=== PATIENT | female | born 1975 | race Caucasian/White ===

== ENCOUNTER 2017-12-04 10:18 | Emergency (ER) | payer OTHER, SELFPAY ==
[2017-12-04 10:20] VITALS: BP 132/95; PULSE 75; RESP 23; TEMP 37; O2SAT 97
--- NOTE | 2017-12-04 10:21 | ED_ITS ---
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 Patient fell back hitting the back of her head on the ground. There was reported loss of consciousness. No vomiting. EMS was called. Patient is not on anticoagulation. EMS states that the while transport here to the emergency department she received 8 mg of Zofran for nausea. Patient does describe left hip pain but otherwise no other symptoms. Related Data Previous Rx's Medication Instructions Recorded alprazolam 0.25 mg tablet 0.25 mg PO QHS #30 tab 09/07/17 levothyroxine 150 mcg tablet 150 mcg PO Q DAY #90 tab 09/26/17 Allergies Allergy/AdvReac Type Severity Reaction Status Date / Time No Known Drug Allergies Allergy Verified 12/04/17 10:24 Review of Systems Constitutional Denies fever(s) and Reports headache(s) Eyes Denies blurry vision and Denies diplopia ENT Ears, Nose, Mouth, and Throat: Denies vertigo, Denies dizziness, Denies facial pain, Reports headache(s), Denies neck pain and Denies sore throat Cardiovascular Denies chest pain, Denies syncope and Denies dyspnea Respiratory Denies dyspnea Gastrointestinal Gastrointestinal: Denies abdominal pain, Denies nausea and Denies vomiting Musculoskeletal Denies neck pain, Denies numbness and Denies tingling Comments: Left hip pain Integumentary/Breasts Denies lesions and Denies rash Neurologic Denies vertigo, Denies dizziness, Denies syncope, Reports headache(s), Denies numbness and Denies tingling Hematologic/Lymphatic Denies easy bleeding and Denies easy bruising Exam Initial Vital Signs Initial Vital Signs: Vital Signs Temperature 98.6 F 12/04/17 10:20 Pulse Rate 75 12/04/17 10:20 Respiratory Rate 23 12/04/17 10:20 Blood Pressure 132/95 H 12/04/17 10:20 Pulse Oximetry 97 12/04/17 10:20 Const General: cooperative, healthy appearing, well developed, well groomed and No acute distress Orientation: alert, awake and oriented x3 HENMT Head: normal to inspection, normocephalic and atraumatic Face and sinus: normal facial exam Mouth: oral mucosae normal Eyes Pupils: PERRL EOM: EOM intact bilaterally Neck Other: In cervical collar Resp Effort & Inspection: normal respiratory effort Auscultation: clear to auscultation bilaterally Cardio Rate: regular rate Rhythm: regular rhythm GI Inspection: non-distended Palpation: soft and No firm Skin Lesions: no lesions Rashes: no rashes Neuro General: alert, awake and oriented x3 Cognition: normal cognition Speech: speech normal Motor: muscle tone normal throughout Sensory Exam: no sensory deficits noted Extrem General: normal to inspection and capillary refill normal Right upper extremity: normal to inspection and full ROM Left upper extremity: normal to inspection and full ROM Right lower extremity: normal to inspection, full ROM and hip/thigh Details: normal to inspection and normal ROM; no tenderness and no swelling Left lower extremity: normal to inspection and full ROM Psych Appearance: grossly normal and well kempt [facility] Medical History Healthy adult (Acute) Surgical History History of third molar tooth extraction Status post delivery (04/01/04) Status post delivery (02/21/06) Family History Father Age: 71 Hypertension Mother Age: 73 Brain cancer Social History Smoking Status: Never smoker Course Orders Ordered: ED Orders 12/04/17 10:35 CT cervical spine wo con Stat CT head/brain wo con Stat Vital Signs - 8 hr 12/04/17 10:20 12/04/17 11:00 Temperature 98.6 F Pulse Rate 75 71 Respiratory Rate 23 21 Blood Pressure 132/95 H Blood Pressure [Right Arm] 117/73 Pulse Oximetry 97 97 MDM - Fall Imaging Data CT scan - head: Radiologist's impression: PROCEDURE: CT HEAD/BRAIN WO CON INDICATIONS: Fall with LOC TECHNIQUE: Noncontrast 4.5 mm thick angled axial sections acquired from the foramen magnum to the vertex, with coronal and sagittal reformats. For radiation dose reduction, the following was used: automated exposure control, adjustment of mA and/or kV according to patient size. COMPARISON: [facility], CT, HEAD WITHOUT CONTRAST, 01/29/2008, 11:41. FINDINGS: Image quality: Excellent. CSF spaces: Basal cisterns are patent. No extra-axial fluid collections. Ventricles are normal in size and shape. There may be an arachnoid cyst within the posterior fossa, unchanged. Brain: No midline shift. No intracranial masses or hemorrhage. Nair-white matter interface is normal. Skull and face: Calvarium and visualized facial bones are intact, without suspicious lesions. Sinuses: Visualized sinuses and mastoids are clear. IMPRESSION: Negative head CT. No acute intracranial hemorrhage. Dictated by: Alejandro Padilla M.D. on 12/04/2017 at 9:56 Approved by: Alejandro Padilla M.D. on 12/04/2017 at 9:57 CT cervical spine: Radiologist's impression: PROCEDURE: CT CERVICAL SPINE WO CON INDICATIONS: Fall with LOC TECHNIQUE: Noncontrast 3 mm thick sections acquired from the skull base to the T4 level. Sagittal and coronal reformats were then constructed. For radiation dose reduction, the following was used: automated exposure control, adjustment of mA and/or kV according to patient size. COMPARISON: None. FINDINGS: Image quality: Excellent. Bones: No fractures or dislocations. 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 Visualized superior ribs are intact. Mild multilevel degenerative disc changes and facet arthropathy are noted. Soft tissues: Prevertebral soft tissues are normal in thickness. No paravertebral hematomas. No apical pneumothoraces. IMPRESSION: No fracture. No acute osseous lesion. If symptoms and/or clinical suspicion for pathology persists, evaluation with MRI may be helpful for further assessment. Dictated by: Brianne Russell MD, PhD on 12/04/2017 at 10:53 Approved by: Brianne Russell MD, PhD on 12/04/2017 at 11:05 [facility] Narrative Medical decision making narrative: Patient is alert and oriented x3. Has a small contusion on the back of her head but no skin abrasions. No indication for suturing. Head CT and cervical spine CT were negative. Cervical collar was removed with full range of motion of her neck without any neurologic symptoms. No other further workup needed here in the emergency department. She has full range of motion of her left hip so will hold on x-rays for now. She reports no other pain. We did discuss the head injury. We did discuss the diagnosis of a concussion. We did discuss the potential complications that she can have such as headaches, vision changes, nausea, mood swings. We did discuss return precautions. Her was at bedside for these discussions. They both expressed understanding and agreement with plan. Discharge Plan Departure Patient Disposition: Home Clinical Impression: Closed head injury, Concussion Instructions: DI for Concussion, Closed Head Injury Activity Restrictions/Additional Instructions: You do have a concussion. You could potentially expect symptoms to include headache, vision changes, nausea, mood swings, lightheadedness. Expect to be more sore tomorrow. If there are specific pains that you have tomorrow that we did not evaluate today such as worsening pain in her left hip then return to the emergency department. You can sleep like normal and eat like normal. Call your primary care doctor for follow-up. No driving for the next 24 hr. Prescriptions: No Action alprazolam 0.25 mg tablet 0.25 mg PO QHS Qty: 30 RF: 2 levothyroxine 150 mcg tablet 150 mcg PO Q DAY Qty: 90 RF: 1 Referrals: Shefali Saravia MD [Physician] - Stand Alone Forms: Work/School Restrictions
--- NOTE | 2017-12-04 10:27 | PC.NURSE ---
Neuro intact. + sensation / movement in all four limbs. + pain only w/ palpation left hip but pt states it is improved. No pain w/ passive / active range of motion. at bedside.
--- NOTE | 2017-12-04 10:35 | DI.CT.S_ITS ---
PROCEDURE: CT HEAD/BRAIN WO CON INDICATIONS: Fall with LOC TECHNIQUE: Noncontrast 4.5 mm thick angled axial sections acquired from the foramen magnum to the vertex, with coronal and sagittal reformats. For radiation dose reduction, the following was used: automated exposure control, adjustment of mA and/or kV according to patient size. COMPARISON: [facility], CT, HEAD WITHOUT CONTRAST, 01/29/2008, 11:41. FINDINGS: Image quality: Excellent. CSF spaces: Basal cisterns are patent. No extra-axial fluid collections. Ventricles are normal in size and shape. There may be an arachnoid cyst within the posterior fossa, unchanged. Brain: No midline shift. No intracranial masses or hemorrhage. Nair-white matter interface is normal. Skull and face: Calvarium and visualized facial bones are intact, without suspicious lesions. Sinuses: Visualized sinuses and mastoids are clear. IMPRESSION: Negative head CT. No acute intracranial hemorrhage. Dictated by: Alejandro Padilla M.D. on 12/04/2017 at 9:56 Approved by: Alejandro Padilla M.D. on 12/04/2017 at 9:57
--- NOTE | 2017-12-04 10:35 | DI.CT.S_ITS ---
PROCEDURE: CT CERVICAL SPINE WO CON INDICATIONS: Fall with LOC TECHNIQUE: Noncontrast 3 mm thick sections acquired from the skull base to the T4 level. Sagittal and coronal reformats were then constructed. For radiation dose reduction, the following was used: automated exposure control, adjustment of mA and/or kV according to patient size. COMPARISON: None. FINDINGS: Image quality: Excellent. Bones: No fractures or dislocations. 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 Visualized superior ribs are intact. Mild multilevel degenerative disc changes and facet arthropathy are noted. Soft tissues: Prevertebral soft tissues are normal in thickness. No paravertebral hematomas. No apical pneumothoraces. IMPRESSION: No fracture. No acute osseous lesion. If symptoms and/or clinical suspicion for pathology persists, evaluation with MRI may be helpful for further assessment. Dictated by: Brianne Russell MD, PhD on 12/04/2017 at 10:53 Approved by: Brianne Russell MD, PhD on 12/04/2017 at 11:05
[2017-12-04 11:00] VITALS: BP 117/73; PULSE 71; RESP 21; O2SAT 97
[2017-12-04] MEDS: ACETAMINOPHEN 325 MG TABLET 650 MG PO (11:45)
== END 2017-12-04 11:50 | disposition home or self-care (01) ==
PROVIDERS: Emergency Provider Emergency Medicine
DX: S06.0X0A Concussion without loss of consciousness, initial encounter (principal); W18.00XA Striking against unspecified object with subsequent fall, initial encounter
CPT/HCPCS: 70450; 72125; 99282; 99283

== ENCOUNTER 2017-12-05 16:49 | Emergency (ER) | payer OTHER, SELFPAY ==
[2017-12-05 16:52] VITALS: BP 122/84; PULSE 71; RESP 20; TEMP 36.5; O2SAT 97; BMI 24.0
[2017-12-05] MEDS: ONDANSETRON 4 MG ODT PO (18:12)
--- NOTE | 2017-12-05 18:46 | DI.CT.S_ITS ---
PROCEDURE: CT HEAD/BRAIN WO CON INDICATIONS: head injury with loss of consciousness yesterday, worse today with nausea TECHNIQUE: Noncontrast 4.5 mm thick angled axial sections acquired from the foramen magnum to the vertex, with coronal and sagittal reformats. For radiation dose reduction, the following was used: automated exposure control, adjustment of mA and/or kV according to patient size. COMPARISON: [facility], CT, CT HEAD/BRAIN WO CON, 12/04/2017, 10:35. FINDINGS: Image quality: Excellent. CSF spaces: Basal cisterns are patent. No extra-axial fluid collections. Ventricles are normal in size and shape. Brain: No midline shift. No intracranial masses or hemorrhage. Nair-white matter interface is normal. Skull and face: Calvarium and visualized facial bones are intact, without suspicious lesions. Sinuses: Visualized sinuses and mastoids are clear. IMPRESSION: No acute intracranial abnormality. No change compared to 12.04.17. Dictated by: Myles Jensen M.D. on 12/05/2017 at 19:13 Approved by: Myles Jensen M.D. on 12/05/2017 at 19:14
--- NOTE | 2017-12-05 18:48 | ED.HEATRA ---
HPI - Head Injury General Chief complaint: Head Injury Stated complaint: NAUSEA S/P HEAD INJURY YESTERDAY Time Seen by Provider: 12/05/17 18:09 Source: patient and family Mode of arrival: ambulatory Limitations: no limitations History of Present Illness HPI Narrative: 42-year-old nonsmoker with no significant medical problems presents to the emergency department for the 2nd time in 2 days with a chief complaint of a head injury that was suffered while at work yesterday. She did suffer a brief loss of consciousness and was seen in the emergency department with a negative head CT. She was discharged home and had a few episodes of nausea and vomiting and returns with request for some antinausea medicines. She denies any focal neurologic findings. She denies a blurred vision or trouble with speech. MD Complaint: head injury Onset (ago): day(s) Mechanism of Injury: fall Place: work Loss of Consciousness: yes Location of injury: occipital Severity: mild Radiation: none Other Injuries: none Related Data Previous Rx's Medication Instructions Recorded alprazolam 0.25 mg tablet 0.25 mg PO QHS #30 tab 09/07/17 levothyroxine 150 mcg tablet 150 mcg PO Q DAY #90 tab 09/26/17 Allergies Allergy/AdvReac Type Severity Reaction Status Date / Time No Known Drug Allergies Allergy Verified 12/04/17 10:24 Review of Systems Review of Systems All systems reviewed & are unremarkable except as noted in HPI and below Constitutional Denies chills, Denies fever(s), Reports headache(s), Denies lethargy and Denies weakness Eyes Denies change in vision, Denies eye discharge, Denies irritation and Denies loss of vision ENT Ears, Nose, Mouth, and Throat: Denies change in voice, Reports headache(s), Denies neck pain and Denies sore throat Cardiovascular Denies chest pain, Denies irregular heart rhythm, Denies lightheadedness, Denies palpitations, Denies dyspnea, Denies dyspnea on exertion and Denies orthopnea Respiratory Denies cough, Denies dyspnea, Denies dyspnea on exertion and Denies wheezing Gastrointestinal Gastrointestinal: Denies abdominal pain, Denies change in bowel habits, Denies diarrhea, Denies nausea and Denies vomiting Genitourinary Denies hematuria, Denies flank pain, Denies urinary incontinence and Denies urinary urgency Musculoskeletal Denies neck pain Integumentary/Breasts Denies pruritus, Denies erythema, Denies rash and Denies wounds Neurologic Denies confusion, Reports headache(s), Denies loss of vision and Denies weakness Psychiatric Denies anxiety, Denies confusion, Denies depression, Denies homicidal ideation and Denies suicidal ideation Endocrine Denies palpitations Hematologic/Lymphatic Denies easy bruising Allergic/Immunologic Denies wheezing [facility] Medical History Healthy adult (Acute) Surgical History History of third molar tooth extraction Status post delivery (04/01/04) Status post delivery (02/21/06) Family History Father Age: 71 Hypertension Mother Age: 73 Brain cancer Social History Smoking Status: Never smoker Exam Initial Vital Signs Initial Vital Signs: Vital Signs Temperature 97.7 F 12/05/17 16:52 Pulse Rate 71 12/05/17 16:52 Respiratory Rate 20 12/05/17 16:52 Blood Pressure 122/84 12/05/17 16:52 Pulse Oximetry 97 12/05/17 16:52 Const General: cooperative and well developed Nutritional Appearance: well nourished Orientation: alert, awake, oriented x3 and not confused [facility] Head: normocephalic and atraumatic Ears: external ears normal and TM's normal bilaterally Nose: external nose normal and No nasal discharge Face and sinus: sinuses nontender, face symmetric, no sinus tenderness and No dry mucous membranes Mouth: oral mucosae normal and moist mucous membranes Teeth and gingiva: dentition normal Throat: tonsils normal and uvula midline Eyes General: appearance normal, both eyes and all related structures Eyelids: eyelids normal Conjunctivae: conjunctivae normal Sclera: sclerae normal Pupils: PERRL EOM: EOM intact bilaterally Neck Neck: normal visual inspection, trachea midline, No lymphadenopathy, No midline deformity and No JVD Lymphatic: No lymphedema Chest Chest: normal inspection of the chest Resp Effort & Inspection: normal respiratory effort, able to speak in complete sentences, no respiratory distress and no use of accessory muscles Auscultation: clear to auscultation bilaterally, no rales, no rhonchi and no wheezes Cardio Rate: regular rate Rhythm: regular rhythm Heart Sounds: no click, no gallops, no murmurs and no rubs Pulses: normal peripheral pulses GI Inspection: non-distended Palpation: soft, no hepatosplenomegaly, No guarding, No pulsatile mass and No tender Auscultation: normal bowel sounds Back/Spine/Pelvis Back: No CVA tenderness Cervical Spine: cervical ROM normal and No pain with cervical ROM Thoracic/Lumbar Spine: thoracic and lumbar spine normal to inspection Skin General: no rashes or lesions noted, No jaundice and No petechiae Neuro General: alert, oriented x3, gait normal and no focal motor deficits Speech: speech normal Extrem General: full ROM, no clubbing, cyanosis or edema, no pedal edema and no calf tenderness Psych Appearance: well kempt Mental Status: mental status grossly normal Attitude: cooperative Thought Content: normal and suicidality Judgment: judgment good Course Orders Ordered: Discontinued Medications Ondansetron HCl (Zofran Odt) 4 mg PO NOW ONE Stop: 12/05/17 18:11 Last Admin: 12/05/17 18:12 Dose: 4 mg Ondansetron HCl (Zofran Odt Prepack) 1 bottle MISC SEEINSTR ONE Stop: 12/05/17 20:32 Last Admin: 12/05/17 20:46 Dose: 1 bottle Vital Signs - 8 hr 12/05/17 16:52 Temperature 97.7 F Pulse Rate 71 Respiratory Rate 20 Blood Pressure 122/84 Pulse Oximetry 97 MDM - Head Injury Differential Diagnosis Differential diagnosis: Likely concussion without loss of consciousness, closed head injury, subarachnoid hematoma, postconcussion syndrome, subdural hematoma and concussion with loss of consciousness Imaging Data CT scan - head: Radiologist's impression: [address] [address] [address] Scan Report Signed Patient: Margot Mcneal KMR#: [id number] : 1975Acct:[id number] Age/Sex: 42 / FDate of Service: 12/05/17 Loc: ED Accession Number: [id number] Procedure: CT head/brain wo con Ordering Provider: Jose Manuel Marroquin D.O. PROCEDURE: CT HEAD/BRAIN WO CON INDICATIONS: head injury with loss of consciousness yesterday, worse today with nausea TECHNIQUE: Noncontrast 4.5 mm thick angled axial sections acquired from the foramen magnum to the vertex, with coronal and sagittal reformats. For radiation dose reduction, the following was used: automated exposure control, adjustment of mA and/or kV according to patient size. COMPARISON: [facility], CT, CT HEAD/BRAIN WO CON, 12/04/2017, 10:35. FINDINGS: Image quality: Excellent. CSF spaces: Basal cisterns are patent. No extra-axial fluid collections. Ventricles are normal in size and shape. Brain: No midline shift. No intracranial masses or hemorrhage. Nair-white matter interface is normal. Skull and face: Calvarium and visualized facial bones are intact, without suspicious lesions. Sinuses: Visualized sinuses and mastoids are clear. IMPRESSION: No acute intracranial abnormality. No change compared to 12.04.17. Dictated by: Myles Jensen M.D. on 12/05/2017 at 19:13 Approved by: Myles eJnsen M.D. on 12/05/2017 at 19:14 Discharge Plan Departure Patient Disposition: Home Clinical Impression: Post-concussion syndrome, Concussion Discharge Date/Time: 12/05/17 20:57 Interventions: ED Discharge Assessment Last Done: 12/05/17 20:56 Instructions: DI for Concussion Activity Restrictions/Additional Instructions: You have a slight concussion and will likely have a mild headache and some nausea for a few days. Avoiding highly stimulating activities and even TV or computers may be helpful in minimizing your symptoms. Avoid activities that will put you at risk for another head injury for at least a week. You can take tylenol or motrin for headache or the prescription provided for nausea/vomiting. Return for worsening or persistent symptoms Prescriptions: No Action alprazolam 0.25 mg tablet 0.25 mg PO QHS Qty: 30 RF: 2 levothyroxine 150 mcg tablet 150 mcg PO Q DAY Qty: 90 RF: 1 Stand Alone Forms: Work/School Restrictions
[2017-12-05 20:34] VITALS: BP 130/86; PULSE 66; RESP 14; O2SAT 96
[2017-12-05] MEDS: ONDANSETRON 4 MG ODT PREPACK 1 BOTTLE MISC (20:46)
--- NOTE | 2017-12-06 06:23 | ED_ITS ---
HPI - Head Injury General Chief complaint: Head Injury Stated complaint: NAUSEA S/P HEAD INJURY YESTERDAY Time Seen by Provider: 12/05/17 18:09 Source: patient and family Mode of arrival: ambulatory Limitations: no limitations History of Present Illness HPI Narrative: 42-year-old nonsmoker with no significant medical problems presents to the emergency department for the 2nd time in 2 days with a chief complaint of a head injury that was suffered while at work yesterday. She did suffer a brief loss of consciousness and was seen in the emergency department with a negative head CT. She was discharged home and had a few episodes of nausea and vomiting and returns with request for some antinausea medicines. She denies any focal neurologic findings. She denies a blurred vision or trouble with speech. MD Complaint: head injury Onset (ago): day(s) Mechanism of Injury: fall Place: work Loss of Consciousness: yes Location of injury: occipital Severity: mild Radiation: none Other Injuries: none Related Data Previous Rx's Medication Instructions Recorded alprazolam 0.25 mg tablet 0.25 mg PO QHS #30 tab 09/07/17 levothyroxine 150 mcg tablet 150 mcg PO Q DAY #90 tab 09/26/17 Allergies Allergy/AdvReac Type Severity Reaction Status Date / Time No Known Drug Allergies Allergy Verified 12/04/17 10:24 Review of Systems Review of Systems All systems reviewed & are unremarkable except as noted in HPI and below Constitutional Denies chills, Denies fever(s), Reports headache(s), Denies lethargy and Denies weakness Eyes Denies change in vision, Denies eye discharge, Denies irritation and Denies loss of vision ENT Ears, Nose, Mouth, and Throat: Denies change in voice, Reports headache(s), Denies neck pain and Denies sore throat Cardiovascular Denies chest pain, Denies irregular heart rhythm, Denies lightheadedness, Denies palpitations, Denies dyspnea, Denies dyspnea on exertion and Denies orthopnea Respiratory Denies cough, Denies dyspnea, Denies dyspnea on exertion and Denies wheezing Gastrointestinal Gastrointestinal: Denies abdominal pain, Denies change in bowel habits, Denies diarrhea, Denies nausea and Denies vomiting Genitourinary Denies hematuria, Denies flank pain, Denies urinary incontinence and Denies urinary urgency Musculoskeletal Denies neck pain Integumentary/Breasts Denies pruritus, Denies erythema, Denies rash and Denies wounds Neurologic Denies confusion, Reports headache(s), Denies loss of vision and Denies weakness Psychiatric Denies anxiety, Denies confusion, Denies depression, Denies homicidal ideation and Denies suicidal ideation Endocrine Denies palpitations Hematologic/Lymphatic Denies easy bruising Allergic/Immunologic Denies wheezing [facility] Medical History Healthy adult (Acute) Surgical History History of third molar tooth extraction Status post delivery (04/01/04) Status post delivery (02/21/06) Family History Father Age: 71 Hypertension Mother Age: 73 Brain cancer Social History Smoking Status: Never smoker Exam Initial Vital Signs Initial Vital Signs: Vital Signs Temperature 97.7 F 12/05/17 16:52 Pulse Rate 71 12/05/17 16:52 Respiratory Rate 20 12/05/17 16:52 Blood Pressure 122/84 12/05/17 16:52 Pulse Oximetry 97 12/05/17 16:52 Const General: cooperative and well developed Nutritional Appearance: well nourished Orientation: alert, awake, oriented x3 and not confused [facility] Head: normocephalic and atraumatic Ears: external ears normal and TM's normal bilaterally Nose: external nose normal and No nasal discharge Face and sinus: sinuses nontender, face symmetric, no sinus tenderness and No dry mucous membranes Mouth: oral mucosae normal and moist mucous membranes Teeth and gingiva: dentition normal Throat: tonsils normal and uvula midline Eyes General: appearance normal, both eyes and all related structures Eyelids: eyelids normal Conjunctivae: conjunctivae normal Sclera: sclerae normal Pupils: PERRL EOM: EOM intact bilaterally Neck Neck: normal visual inspection, trachea midline, No lymphadenopathy, No midline deformity and No JVD Lymphatic: No lymphedema Chest Chest: normal inspection of the chest Resp Effort & Inspection: normal respiratory effort, able to speak in complete sentences, no respiratory distress and no use of accessory muscles Auscultation: clear to auscultation bilaterally, no rales, no rhonchi and no wheezes Cardio Rate: regular rate Rhythm: regular rhythm Heart Sounds: no click, no gallops, no murmurs and no rubs Pulses: normal peripheral pulses GI Inspection: non-distended Palpation: soft, no hepatosplenomegaly, No guarding, No pulsatile mass and No tender Auscultation: normal bowel sounds Back/Spine/Pelvis Back: No CVA tenderness Cervical Spine: cervical ROM normal and No pain with cervical ROM Thoracic/Lumbar Spine: thoracic and lumbar spine normal to inspection Skin General: no rashes or lesions noted, No jaundice and No petechiae Neuro General: alert, oriented x3, gait normal and no focal motor deficits Speech: speech normal Extrem General: full ROM, no clubbing, cyanosis or edema, no pedal edema and no calf tenderness Psych Appearance: well kempt Mental Status: mental status grossly normal Attitude: cooperative Thought Content: normal and suicidality Judgment: judgment good Course Orders Ordered: Discontinued Medications Ondansetron HCl (Zofran Odt) 4 mg PO NOW ONE Stop: 12/05/17 18:11 Last Admin: 12/05/17 18:12 Dose: 4 mg Ondansetron HCl (Zofran Odt Prepack) 1 bottle MISC SEEINSTR ONE Stop: 12/05/17 20:32 Last Admin: 12/05/17 20:46 Dose: 1 bottle Vital Signs - 8 hr 12/05/17 16:52 Temperature 97.7 F Pulse Rate 71 Respiratory Rate 20 Blood Pressure 122/84 Pulse Oximetry 97 MDM - Head Injury Differential Diagnosis Differential diagnosis: Likely concussion without loss of consciousness, closed head injury, subarachnoid hematoma, postconcussion syndrome, subdural hematoma and concussion with loss of consciousness Imaging Data CT scan - head: Radiologist's impression: [address] [address] [address] Scan Report Signed Patient: Margot Mcneal KMR#: [id number] : 1975Acct:[id number] Age/Sex: 42 / FDate of Service: 12/05/17 Loc: ED Accession Number: [id number] Procedure: CT head/brain wo con Ordering Provider: Jose Manuel Marroquin D.O. PROCEDURE: CT HEAD/BRAIN WO CON INDICATIONS: head injury with loss of consciousness yesterday, worse today with nausea TECHNIQUE: Noncontrast 4.5 mm thick angled axial sections acquired from the foramen magnum to the vertex, with coronal and sagittal reformats. For radiation dose reduction, the following was used: automated exposure control, adjustment of mA and/or kV according to patient size. COMPARISON: [facility], CT, CT HEAD/BRAIN WO CON, 12/04/2017, 10:35. FINDINGS: Image quality: Excellent. CSF spaces: Basal cisterns are patent. No extra-axial fluid collections. Ventricles are normal in size and shape. Brain: No midline shift. No intracranial masses or hemorrhage. Nair-white matter interface is normal. Skull and face: Calvarium and visualized facial bones are intact, without suspicious lesions. Sinuses: Visualized sinuses and mastoids are clear. IMPRESSION: No acute intracranial abnormality. No change compared to 12.04.17. Dictated by: Myles Jensen M.D. on 12/05/2017 at 19:13 Approved by: Myles Jensen M.D. on 12/05/2017 at 19:14 Discharge Plan Departure Patient Disposition: Home Clinical Impression: Post-concussion syndrome, Concussion Discharge Date/Time: 12/05/17 20:57 Interventions: ED Discharge Assessment Last Done: 12/05/17 20:56 Instructions: DI for Concussion Activity Restrictions/Additional Instructions: You have a slight concussion and will likely have a mild headache and some nausea for a few days. Avoiding highly stimulating activities and even TV or computers may be helpful in minimizing your symptoms. Avoid activities that will put you at risk for another head injury for at least a week. You can take tylenol or motrin for headache or the prescription provided for nausea/ vomiting. Return for worsening or persistent symptoms Prescriptions: No Action alprazolam 0.25 mg tablet 0.25 mg PO QHS Qty: 30 RF: 2 levothyroxine 150 mcg tablet 150 mcg PO Q DAY Qty: 90 RF: 1 Stand Alone Forms: Work/School Restrictions
== END 2017-12-05 20:57 | disposition home or self-care (01) ==
PROVIDERS: Emergency Provider Emergency Medicine
DX: F07.81 Postconcussional syndrome (principal)
CPT/HCPCS: 70450; 99283

== ENCOUNTER → 2018-05-02 11:54 | Outpatient (CLI) | payer OTHER, SELFPAY ==
[2018-05-02 16:34] LABS: Free T4, Direct Thyroxine 0.79 ng/dL (0.78-2.19)
[2018-05-02 16:48] LABS: Thyroid Stimulating Hormone 4.56 uIU/mL (0.47-4.68)
[2018-05-04 17:20] LABS: Triiodothyronine T3 Total 69 ng/dL (76-181)
== END ==
PROVIDERS: PCP Internal Medicine; Visit Provider Internal Medicine
DX: E03.9 Hypothyroidism, unspecified (principal)
CPT/HCPCS: 36415; 84439; 84443; 84480

== ENCOUNTER → 2018-06-21 12:56 | Outpatient (CLI) | payer OTHER, SELFPAY ==
--- NOTE | 2018-06-21 | DI.MG.S_ITS ---
BILATERAL DIGITAL SCREENING MAMMOGRAM 3D/2D WITH CAD: 06/21/2018 CLINICAL: Routine screening. Comparison is made to exams dated: 06/11/2017 mammogram, 03/23/2016 mammogram, and 03/22/2015 mammogram - [facility]. The tissue of both breasts is heterogeneously dense. This may lower the sensitivity of mammography. Current study was also evaluated with a Computer Aided Detection (CAD) system. No significant masses, calcifications, or other findings are seen in either breast. There has been no significant interval change. IMPRESSION: NEGATIVE There is no mammographic evidence of malignancy. A 1 year screening mammogram is recommended. This exam was interpreted at Station ID: [id number]. NOTE: For mammograms, a report in lay terms will be sent to the patient. Approximately 15% of breast malignancies will not be visualized mammographically. In the management of a palpable breast mass, a negative mammogram must not discourage biopsy of a clinically suspicious lesion. Electronically Signed By: Rowena centeno/benita:06/21/2018 13:36:58 letter sent: Normal Exam ACR BI-RADS Category 1: Negative 3341F
== END ==
PROVIDERS: PCP Internal Medicine; Visit Provider Obstetrics & Gynecology
DX: Z12.31 Encounter for screening mammogram for malignant neoplasm of breast (principal)
CPT/HCPCS: 77063; 77067

== ENCOUNTER → 2018-07-23 12:42 | Outpatient (CLI) | payer OTHER, SELFPAY ==
[2018-07-23 15:58] LABS: Vitamin D 25 Hydroxy (D3) 39.3 ng/mL (30.0-100.0)
[2018-07-23 16:00] LABS: Free T3, Triiodothyronine Free 2.94 pg/mL (2.77-5.27)
[2018-07-23 16:13] LABS: Thyroid Stimulating Hormone 1.88 uIU/mL (0.47-4.68)
== END ==
PROVIDERS: PCP Internal Medicine; Visit Provider Student in an Organized Health Care Education/Training Program
DX: E03.9 Hypothyroidism, unspecified (principal); E55.9 Vitamin D deficiency, unspecified
CPT/HCPCS: 36415; 82306; 84439; 84443; 84481

== ENCOUNTER → 2019-10-23 13:06 | Outpatient (CLI) | payer OTHER, SELFPAY ==
[2019-10-23 14:49] LABS: Free T4, Direct Thyroxine 1.36 ng/dL (0.78-2.19)
[2019-10-23 15:03] LABS: Thyroid Stimulating Hormone 0.671 uIU/mL (0.47-4.68)
== END ==
PROVIDERS: PCP Student in an Organized Health Care Education/Training Program; Referring Provider Student in an Organized Health Care Education/Training Program; Visit Provider Obstetrics & Gynecology
DX: E03.9 Hypothyroidism, unspecified (principal)
CPT/HCPCS: 36415; 84439; 84443

== ENCOUNTER → 2019-11-15 08:59 | Outpatient (CLI) | payer OTHER, SELFPAY ==
--- NOTE | 2019-11-15 | DI.MG.S_ITS ---
BILATERAL DIGITAL SCREENING MAMMOGRAM 3D/2D WITH CAD: 11/15/2019 CLINICAL: Routine screening. Comparison is made to exams dated: 06/21/2018 mammogram, 06/11/2017 mammogram, 03/23/2016 mammogram, 03/22/2015 mammogram, and 03/19/2014 mammogram - [facility]. The tissue of both breasts is heterogeneously dense. This may lower the sensitivity of mammography. Current study was also evaluated with a Computer Aided Detection (CAD) system. No significant masses, calcifications, or other findings are seen in either breast. There has been no significant interval change. IMPRESSION: NEGATIVE There is no mammographic evidence of malignancy. A 1 year screening mammogram is recommended. This exam was interpreted at Station ID: [id number]. NOTE: For mammograms, a report in lay terms will be sent to the patient. Approximately 15% of breast malignancies will not be visualized mammographically. In the management of a palpable breast mass, a negative mammogram must not discourage biopsy of a clinically suspicious lesion. Electronically Signed By: Salvador russ/benita:11/17/2019 08:17:41 letter sent: Normal Exam ACR BI-RADS Category 1: Negative 3341F
== END ==
PROVIDERS: PCP Student in an Organized Health Care Education/Training Program; Referring Provider Obstetrics & Gynecology; Visit Provider Obstetrics & Gynecology
DX: Z12.31 Encounter for screening mammogram for malignant neoplasm of breast (principal)
CPT/HCPCS: 77063; 77067

== ENCOUNTER → 2021-01-22 09:59 | Outpatient (CLI) | payer OTHER, SELFPAY ==
[2021-01-22 11:15] LABS: BUN Creatinine Ratio 23.4 (6-22); Blood Urea Nitrogen 18 mg/dL (7-17); Estimated Glomerular Filt Rate > 60.0 mL/min (>60)
[2021-01-22 11:44] LABS: TSH w/ Reflex to FT4 2.03 uIU/mL (0.47-4.68)
== END ==
PROVIDERS: PCP Student in an Organized Health Care Education/Training Program; Referring Provider Student in an Organized Health Care Education/Training Program; Visit Provider Student in an Organized Health Care Education/Training Program
DX: E03.9 Hypothyroidism, unspecified (principal); Z79.899 Other long term (current) drug therapy
CPT/HCPCS: 36415; 82565; 84443; 84520

== ENCOUNTER → 2021-10-13 08:22 | Outpatient (CLI) | payer OTHER, SELFPAY ==
--- NOTE | 2021-10-13 08:23 | DI.MG.S_ITS ---
BILATERAL DIGITAL SCREENING MAMMOGRAM 3D/2D WITH CAD: 10/13/2021 CLINICAL: Routine screening. Comparison is made to exams dated: 11/15/2019 mammogram, 06/21/2018 mammogram, and 06/11/2017 mammogram - [facility]. Both breasts are heterogeneously dense, which may obscure small masses (category c / 51-75% glandular tissue). Current study was also evaluated with a Computer Aided Detection (CAD) system. No significant masses, calcifications, or other findings are seen in either breast. There has been no significant interval change. IMPRESSION: NEGATIVE There is no mammographic evidence of malignancy. A 1 year screening mammogram is recommended. Based on the Tyrer Cuzick model (a risk assessment model) the patient's lifetime risk is 13.3% and her 10 year risk is 2.9%. According to the ACR, ACS, and NCCN guidelines, an annual breast MRI exam along with mammogram is recommended if the patient's lifetime risk is 20% or greater. This exam was interpreted at Station ID: [id number]. NOTE: For mammograms, a report in lay terms will be sent to the patient. Approximately 15% of breast malignancies will not be visualized mammographically. In the management of a palpable breast mass, a negative mammogram must not discourage biopsy of a clinically suspicious lesion. Electronically Signed By: Rowena centeno/benita:10/13/2021 15:15:01 letter sent: Normal Exam ACR BI-RADS Category 1: Negative 3341F
== END ==
PROVIDERS: PCP Student in an Organized Health Care Education/Training Program; Referring Provider Student in an Organized Health Care Education/Training Program; Visit Provider Student in an Organized Health Care Education/Training Program
DX: Z12.31 Encounter for screening mammogram for malignant neoplasm of breast (principal)
CPT/HCPCS: 77063; 77067

== ENCOUNTER → 2021-10-27 11:24 | Outpatient (CLI) | payer OTHER, SELFPAY ==
[2021-10-27 14:15] LABS: Appearance Urine UA SL CLOUDY; Bilirubin Urine UA NEGATIVE (NEGATIVE); Color Urine UA YELLOW; Glucose Urine UA NEGATIVE (Negative); Ketones Urine UA NEGATIVE (NEGATIVE); Leukocyte Esterase Urine UA 2+ (NEGATIVE); Nitrite Urine UA NEGATIVE (Negative); Occult Blood Urine UA 3+ (Negative); Protein Urine UA NEGATIVE (Negative); Urobilinogen Urine UA 0.2 E.U./dL (0.2)
[2021-10-27 14:21] LABS: Amorphous Sediment Urine 1+; Bacteria Urine Many (>30); Culture Indicated Urine Specimen Cultured; RBC Urine 5-10/HPF (0-5/HPF); Squamous Epithelial Cell Urine 1-5 /HPF (0-5/HPF); WBC Urine 30-100/HPF (0-5/HPF)
== END ==
PROVIDERS: PCP Student in an Organized Health Care Education/Training Program; Referring Provider Student in an Organized Health Care Education/Training Program; Visit Provider Student in an Organized Health Care Education/Training Program
DX: R35.0 Frequency of micturition (principal); R39.9 Unspecified symptoms and signs involving the genitourinary system
CPT/HCPCS: 81001; 87077; 87086; 87186

== ENCOUNTER → 2022-11-07 08:32 | Outpatient (CLI) | payer OTHER, SELFPAY ==
[2022-11-07 10:06] LABS: Add Manual Diff / Slide Review NO; Basophils Absolute Auto 100 /uL (0-100); Basophils Percent Auto 2.1 % (0-2); Eosinophils Absolute Auto 100 /uL (0-450); Eosinophils Percent Auto 2.9 % (2-4); Hematocrit 29.1 % (36-46); Hemoglobin 9.7 g/dL (12.0-16.0); Lymphocytes Absolute Auto 1000 /uL (1100-4500); Lymphocytes Percent Auto 25.8 % (25-40); Mean Corpuscular HGB Conc 33.4 % (30-36); Mean Corpuscular Hemoglobin 29.3 PG (26-34); Mean Corpuscular Volume 87.9 fL (80-100); Monocytes Absolute Auto 400 /uL (0-900); Monocytes Percent Auto 11.2 % (3-14); Neutrophils Absolute Auto 2200 /uL (1500-7000); Platelet Count 284 X10^3/uL (150-400); Red Blood Cell Count 3.31 X10^6/uL (4.0-5.2); Red Cell Distribution Width 14.6 % (11.6-14.8); White Blood Cell Count 3.7 X10^3/uL (4.5-11.0)
[2022-11-07 10:52] LABS: Erythrocyte Sedimentation Rate 17 MM/HR (0-20)
[2022-11-07 11:13] LABS: Alanine Aminotransferase 25 IU/L (<35); Albumin 3.8 g/dL (3.5-5.0); Albumin Globulin Ratio 1.4 (1.0-2.8); Alkaline Phosphatase 46 U/L (38-126); Aspartate Aminotransferase 27 IU/L (14-36); BUN Creatinine Ratio 24.3 (6-22); Bilirubin Total 0.4 mg/dL (0.2-1.3); Blood Urea Nitrogen 18 mg/dL (7-17); Calcium 8.7 mg/dL (8.4-10.2); Carbon Dioxide 27 mmol/L (22-32); Chloride 104 mmol/L (98-107); Estimated Glomerular Filt Rate > 60 mL/min (>60); Globulin 2.8 g/dL (1.7-4.1); Glucose 80 mg/dL (70-100); HEMOLYSIS < 15 (0-50); Potassium 4.5 mmol/L (3.4-5.1); Sodium 135 mmol/L (137-145); Total Protein 6.6 g/dL (6.3-8.2)
[2022-11-07 12:02] LABS: Free T4, Direct Thyroxine 0.86 ng/dL (0.78-2.19)
--- NOTE | 2022-11-07 15:46 | DI.RAD.S_ITS ---
PROCEDURE: XR SACROILIAC JOINT MIN 3V INDICATIONS: ? LS or SI origin for chronic bilat Low back pain TECHNIQUE: 3 views of the sacroiliac joints were acquired. COMPARISON: None. FINDINGS: Bones: No bony erosions or ankylosis. No suspicious bony lesions. No fractures. Soft tissues: Overlying bowel gas pattern is normal. No suspicious soft tissue densities. IMPRESSION: Sacroiliac joints are within normal limits. Approved by: Eleazar Carl M.D. on 11/07/2022 at 20:04
--- NOTE | 2022-11-07 15:46 | DI.RAD.S_ITS ---
PROCEDURE: XR LUMBAR SPINE 2-3V INDICATIONS: disk spaces? spurs? TECHNIQUE: 3 views of the lumbar spine were acquired. COMPARISON: None. FINDINGS: Bones: 5 [id number] vertebrae are present. There is normal bony alignment. No vertebral body compression fractures. No suspicious bony lesions. There is mild facet hypertrophy at L4-5 and L5-S1. Minimal joint space narrowing is seen at the L5-S1 level. Questionable pars defects at L5 without spondylolisthesis. Soft tissues: Overlying bowel gas pattern is normal. No suspicious soft tissue calcifications. IMPRESSION: Mild spondylosis. Suspected spondylolysis of L5 without spondylolisthesis. Approved by: Eleazar Carl M.D. on 11/07/2022 at 20:04
== END ==
PROVIDERS: PCP Pediatrics; Referring Provider Pediatrics; Visit Provider Pediatrics
DX: M54.41 Lumbago with sciatica, right side (principal); M54.42 Lumbago with sciatica, left side; E03.9 Hypothyroidism, unspecified; F41.9 Anxiety disorder, unspecified; F51.05 Insomnia due to other mental disorder
CPT/HCPCS: 36415; 72100; 72202; 80053; 84439; 84443; 85025; 85651

== ENCOUNTER → 2022-11-09 15:02 | Outpatient (CLI) | payer OTHER, SELFPAY ==
[2022-11-09 17:46] LABS: Vitamin B12 768 pg/mL (239-931)
== END ==
PROVIDERS: PCP Pediatrics; Referring Provider Pediatrics; Visit Provider Pediatrics
DX: D64.9 Anemia, unspecified (principal)
CPT/HCPCS: 36415; 82607; 82746

== ENCOUNTER → 2023-01-02 12:11 | Outpatient (CLI) | payer OTHER, SELFPAY ==
[2023-01-02 17:13] LABS: Add Manual Diff / Slide Review NO; Basophils Absolute Auto 200 /uL (0-100); Basophils Percent Auto 2.3 % (0-2); Eosinophils Absolute Auto 200 /uL (0-450); Eosinophils Percent Auto 2.8 % (2-4); Hematocrit 36.8 % (36-46); Hemoglobin 12.3 g/dL (12.0-16.0); Lymphocytes Absolute Auto 1100 /uL (1100-4500); Lymphocytes Percent Auto 16.3 % (25-40); Mean Corpuscular HGB Conc 33.4 % (30-36); Mean Corpuscular Hemoglobin 28.4 PG (26-34); Mean Corpuscular Volume 84.9 fL (80-100); Monocytes Absolute Auto 500 /uL (0-900); Monocytes Percent Auto 7.4 % (3-14); Neutrophils Absolute Auto 5000 /uL (1500-7000); Neutrophils Percent Auto 71.2 % (50-75); Platelet Count 220 X10^3/uL (150-400); Red Blood Cell Count 4.34 X10^6/uL (4.0-5.2)
== END ==
PROVIDERS: PCP Pediatrics; Referring Provider Pediatrics; Visit Provider Pediatrics
DX: D72.819 Decreased white blood cell count, unspecified (principal); E03.9 Hypothyroidism, unspecified
CPT/HCPCS: 36415; 84443; 85025

== ENCOUNTER → 2023-02-15 16:19 | Outpatient (CLI) | payer OTHER, SELFPAY ==
[2023-02-15 17:40] LABS: Free T4, Direct Thyroxine 1.88 ng/dL (0.78-2.19)
[2023-02-15 17:57] LABS: Thyroid Stimulating Hormone < 0.015 uIU/mL (0.47-4.68)
[2023-02-15 18:08] LABS: Estradiol, Total 122.3 pg/mL
== END ==
PROVIDERS: PCP Family Medicine; Referring Provider Obstetrics & Gynecology; Visit Provider Obstetrics & Gynecology
DX: E03.9 Hypothyroidism, unspecified (principal)
CPT/HCPCS: 36415; 82670; 84439; 84443

== ENCOUNTER → 2023-03-23 09:20 | Outpatient (CLI) | payer OTHER, SELFPAY ==
[2023-03-23 18:50] LABS: Free T4, Direct Thyroxine 1.15 ng/dL (0.78-2.19)
[2023-03-23 19:05] LABS: Thyroid Stimulating Hormone 0.031 uIU/mL (0.47-4.68)
== END ==
PROVIDERS: PCP Family Medicine; Referring Provider Obstetrics & Gynecology; Visit Provider Obstetrics & Gynecology
DX: E03.9 Hypothyroidism, unspecified (principal)
CPT/HCPCS: 36415; 84439; 84443

== ENCOUNTER → 2023-03-27 08:29 | Outpatient (CLI) | payer OTHER, SELFPAY | PROVIDERS: PCP Family Medicine; Visit Provider Registered Nurse | DX: R30.0 Dysuria (principal) | CPT/HCPCS: 87077; 87086; 87147; 87186 ==

== ENCOUNTER → 2024-02-19 08:35 | Outpatient (CLI) | payer OTHER, SELFPAY | PROVIDERS: PCP Family Medicine; Visit Provider Family Medicine | DX: R30.0 Dysuria (principal); R39.89 Other symptoms and signs involving the genitourinary system | CPT/HCPCS: 87077; 87086 ==

== ENCOUNTER → 2024-02-19 09:22 | Outpatient (CLI) | payer OTHER, SELFPAY ==
[2024-02-19 10:14] LABS: Alanine Aminotransferase 27 IU/L (<35); Albumin 4.3 g/dL (3.5-5.0); Albumin Globulin Ratio 1.3 (1.0-2.8); Alkaline Phosphatase 55 U/L (38-126); Aspartate Aminotransferase 38 IU/L (14-36); Bilirubin Total 0.7 mg/dL (0.2-1.3); Blood Urea Nitrogen 19 mg/dL (7-17); Calcium 8.9 mg/dL (8.4-10.2); Carbon Dioxide 29 mmol/L (22-32); Chloride 104 mmol/L (98-107); Cholesterol 194 mg/dL (140-199); Estimated Glomerular Filt Rate > 60 mL/min (>60); Globulin 3.4 g/dL (1.7-4.1); Glucose 87 mg/dL (70-100); HDL Cholesterol 68 mg/dL (40-60); HEMOLYSIS < 15 (0-50); LDL Cholesterol Calculated 101 mg/dL (<100); Sodium 138 mmol/L (137-145); Total Protein 7.7 g/dL (6.3-8.2); Triglycerides 124 mg/dL (35-150)
[2024-02-19 10:31] LABS: Free T3, Triiodothyronine Free 4.47 pg/mL (2.77-5.27); Free T4, Direct Thyroxine 1.63 ng/dL (0.78-2.19)
[2024-02-19 11:37] LABS: HIV 1 & 2 Ab/Ag 4th Gen Combo NEGATIVE (NEGATIVE); Hep C Virus Ab w/Reflex Quant NEGATIVE s/c (NEGATIVE)
== END ==
PROVIDERS: PCP Family Medicine; Referring Provider Family Medicine; Visit Provider Family Medicine
DX: Z00.00 Encounter for general adult medical examination without abnormal findings (principal); E03.9 Hypothyroidism, unspecified; R30.0 Dysuria; R39.89 Other symptoms and signs involving the genitourinary system
CPT/HCPCS: 36415; 80053; 80061; 84439; 84443; 84481; 86803; 87077; 87086; 87389

== ENCOUNTER → 2024-03-29 08:48 | Outpatient (CLI) | payer OTHER, SELFPAY ==
--- NOTE | 2024-03-29 08:51 | DI.MG.S_ITS ---
BILATERAL DIGITAL SCREENING MAMMOGRAM 3D/2D WITH CAD: 03/29/2024 CLINICAL: Routine screening. Comparison is made to exams dated: 10/13/2021 mammogram, 11/15/2019 mammogram, 06/21/2018 mammogram, and 06/11/2017 mammogram - [facility]. There are scattered areas of fibroglandular density (category b / 25%-50% glandular tissue). Current study was also evaluated with a Computer Aided Detection (CAD) system. No significant masses, calcifications, or other findings are seen in either breast. There has been no significant interval change. IMPRESSION: NEGATIVE There is no mammographic evidence of malignancy. A 1 year screening mammogram is recommended. Based on the Tyrer Cuzick model (a risk assessment model) the patient's lifetime risk is 8.8% and her 10 year risk is 2.1%. According to the ACR, ACS, and NCCN guidelines, an annual breast MRI exam along with mammogram is recommended if the patient's lifetime risk is 20% or greater. This exam was interpreted at Station ID: [id number]. NOTE: For mammograms, a report in lay terms will be sent to the patient. Approximately 15% of breast malignancies will not be visualized mammographically. In the management of a palpable breast mass, a negative mammogram must not discourage biopsy of a clinically suspicious lesion. Electronically Signed By: Ftaimah Mcneill M.D., Ph.D. carey/benita:04/03/2024 09:10:47 letter sent: Normal Exam ACR BI-RADS Category 1: Negative
== END ==
PROVIDERS: PCP Family Medicine; Referring Provider Family Medicine; Visit Provider Family Medicine
DX: Z12.31 Encounter for screening mammogram for malignant neoplasm of breast (principal)
CPT/HCPCS: 73721; 77063; 77067

== ENCOUNTER → 2024-03-29 | Outpatient (CLI) | payer OTHER, SELFPAY ==
--- NOTE | 2024-03-29 | DI.MRI.S_ITS ---
PROCEDURE: MR KNEE RT WO CON INDICATIONS: strain of right knee TECHNIQUE: Noncontrast sagittal PD fast spin echo and T2 fast spin echo with fat saturation, sagittal 3-D FLASH with fat saturation; coronal T1 spin echo and PD fast spin echo with fat saturation, and axial PD fast spin echo with fat saturation through the knee. COMPARISON: [facility], CR, XR KNEE 4+ VIEWS RIGHT, 03/13/2024, 9:26. FINDINGS: Image quality: Excellent. Bones: Red marrow reconversion is present in the distal femoral metadiaphyseal region. The bone marrow signal is otherwise normal. There is no acute fracture or dislocation. Joints: There is a trace knee joint effusion. There is no significant knee osteoarthritis. Hewitt's cyst: None. Menisci: The medial meniscus is normal. The lateral meniscus is normal. The posterior root attachments are normal. Cruciate ligaments: The anterior cruciate ligament is normal. The posterior cruciate ligament is normal. Collateral ligaments: There is mild low signal thickening of the tibial collateral ligament and the fibular collateral ligament. The medial collateral ligament complex is otherwise normal. The lateral collateral ligament complex is otherwise normal. Popliteus Muscle/Tendon: The popliteus muscle and tendon are normal. Extensor mechanism: The quadriceps tendon is normal. The patellar tendon is normal. The medial and lateral patellar retinacular attachments are normal. Articular cartilage: There is no significant articular cartilage defect. Other: No other acute findings. IMPRESSION: 1. Chronic sprains of the tibial collateral and fibular collateral ligaments. 2. Otherwise, no acute MR abnormality of the right knee. Dictated by: Kishore Kaur M.D. on 03/31/2024 at 9:28 Approved by: Kishore Kaur M.D. on 03/31/2024 at 9:59
== END ==
PROVIDERS: PCP Family Medicine; Referring Provider Orthopaedic Surgery Foot and Ankle Surgery; Visit Provider Orthopaedic Surgery Foot and Ankle Surgery
DX: S83.411A Sprain of medial collateral ligament of right knee, initial encounter (principal); S83.421A Sprain of lateral collateral ligament of right knee, initial encounter; X58.XXXA Exposure to other specified factors, initial encounter
CPT/HCPCS: 73721

== ENCOUNTER 2024-05-16 06:42 | Day surgery (SDC) | payer OTHER, SELFPAY ==
[2024-05-16 07:15] VITALS: BP 110/72; PULSE 74; RESP 16; TEMP 36.2; O2SAT 97
--- NOTE | 2024-05-16 07:27 | P.HP_ITS ---
History of Present Illness History of Present Illness Date Patient Seen: 05/16/24 Time Patient Seen: 07:27 Chief complaint: SD Narrative: screening colonoscopy REPLACED BY [facility] Medical History RLS (restless legs syndrome) Bicornuate uterus Uterus didelphys Rosacea (~2015) Heavy menstrual period Abnormal Pap smear of cervix (~2011) Hypothyroidism (~1993) Surgical History Anesthesia Status post delivery (02/21/06) Status post delivery (04/01/04) History of third molar tooth extraction (~1993) Family History Father Age: 78 Hypertension Mother Brain cancer Social History Smoking Status: Never smoker Meds Home Medications and Allergies Home Medications Medication Instructions Recorded Confirmed Type tretinoin 0.025 % topical cream 1 applic topical BEDTIME 03/20/22 02/19/24 History alprazolam 0.25 mg tablet 0.25 mg PO QHS PRN anxiety #30 tabs 01/29/24 02/19/24 Rx gabapentin 300 mg capsule 300 mg PO BEDTIME PRN RLS #30 caps 01/29/24 02/19/24 Rx progesterone micronized 100 mg 100 mg PO QAM #90 caps 02/07/24 02/19/24 Rx capsule estradiol 0.075 mg/24 hr 1 patch topical 2XW #24 patches 02/19/24 02/19/24 Rx semiweekly transdermal patch (Saniya) levothyroxine 175 mcg tablet 175 mcg PO DAILY #90 tabs 02/22/24 Rx Allergies Allergy/AdvReac Type Severity Reaction Status Date / Time No Known Drug Allergies Allergy Verified 05/16/24 06:49 Review of Systems Review of Systems Narrative: denies weight loss, BRBPR, hematochezia. note a hemorrhoid. no strong family hx Exam Vital Signs (past 8 hours): - 05/16/24 07:15 Temperature 97.2 F L Pulse Rate 74 Respiratory Rate 16 Blood Pressure 110/72 Pulse Oximetry 97 Oxygen Delivery Method Room Air Oxygen Delivery Method Room Air Narrative Exam Narrative: NAD, AAOX3. Const General: cooperative, healthy appearing and comfortable Nutritional Appearance: average body habitus HENMT Head: normal to inspection Neck Neck: normal visual inspection Resp Effort & Inspection: normal respiratory effort and able to speak in complete sentences GI Inspection: normal to inspection Palpation: soft Assessment & Plan Assessment & Plan narrative: screening colonoscopy, planning for case today. consent signed. Time-Based Coding :: [TOTAL MINUTES] spent with patient and on the chart (including review of chart, obtaining history, exam, reviewing outside data, placing orders, documenting exam and treatment plan, and counseling patient) on [DATE]. PROFEE Cardiac Technician Document charge(s): Yes
[2024-05-16 08:12] VITALS: BP 110/76; PULSE 68; RESP 16; TEMP 36.4; O2SAT 97
--- NOTE | 2024-05-16 08:12 | PM.OP.COLON ---
Operative Date/Time/Diagnoses Date of procedure: 05/16/24 Time of procedure: 08:12 Pre-op diagnosis: positive FIT Post-op diagnosis: same Procedure & Clinicians Study performed: colonoscopy Same procedure as scheduled: Yes Indications: positive FIT Surgeon: Júnior Hogue Procedure Notes SCOAP/Timeout: performed Procedure in detail: Patient seen in the preop area, H and P updated, positive fecal occult testing. Patient reported prep was adequate. Patient brought back to procedure room, time-out was performed verifying correct patient procedure.She was given sedation. External rectal exam was performed with no identified fissures. small non bleeding external hemorrhoids. Some skin tags. Digital rectal exam performed with no masses or blood. Colonoscope placed, colon insufflated, adequacy of prep was adequate. the scope was passed without difficulty to the cecum, verified by identification of the tinea and palpation The scope was withdrawn with circumferential view of the colon, areas occluded by bowel prep or cleaned as much as possible. No lesions were identified upon removal of the scope. The scope was retroflexed in the rectum. some proctitis was identified. one internal hemorrhoid was identified non bleeding air was withdrawn from the colon, scope was withdrawn, and the patient was brought to the recovery area in stable condition. Scope withdrawal time: 7min Findings: other findings (non bleeding proctitis. ) Specimen(s): none sent Complications: none Impression: normal exam some proctitis no specific treatment needed. This is a benign condition. (if sensation of fullness or bleeding would follow up with surgeon for treatment, which generally includes fiber supplementation, bulking agents, and diet modification) Post-procedure Recommendations: Colonoscopy in 10 years Plan for aftercare: home Follow up: as needed Disposition: PACU
[2024-05-16 08:17] VITALS: BP 111/73; PULSE 73; RESP 16; O2SAT 98
[2024-05-16 08:22] VITALS: BP 122/77; PULSE 66; RESP 14; TEMP 36.5; O2SAT 99
== END 2024-05-16 08:42 | disposition home or self-care (01) ==
PROVIDERS: PCP Family Medicine
DX: Z12.11 Encounter for screening for malignant neoplasm of colon (principal); R19.5 Other fecal abnormalities; K62.89 Other specified diseases of anus and rectum; K64.8 Other hemorrhoids
CPT/HCPCS: 45378; J2704

== ENCOUNTER → 2024-12-12 15:07 | Outpatient (CLI) | payer OTHER, SELFPAY ==
[2024-12-12 16:39] LABS: TSH w/ Reflex to FT4 5.36 uIU/mL (0.47-4.68)
[2024-12-12 17:40] LABS: Free T4, Direct Thyroxine 1.19 ng/dL (0.78-2.19)
== END ==
LOC: LAB 15:07
PROVIDERS: PCP Family Medicine; Referring Provider Family Medicine; Visit Provider Family Medicine
DX: E03.9 Hypothyroidism, unspecified (principal)
CPT/HCPCS: 36415; 84439; 84443

== ENCOUNTER → 2025-02-16 08:04 | Outpatient (CLI) | payer OTHER, SELFPAY ==
[2025-02-16 09:47] LABS: Free T3, Triiodothyronine Free 3.47 pg/mL (2.77-5.27); Free T4, Direct Thyroxine 1.42 ng/dL (0.78-2.19)
[2025-02-16 10:00] LABS: Thyroid Stimulating Hormone 0.868 uIU/mL (0.47-4.68)
[2025-02-16 17:07] LABS: Hematocrit 37.8 % (36-46); Hemoglobin 13.0 g/dL (12.0-16.0); Mean Corpuscular HGB Conc 34.5 % (30-36); Mean Corpuscular Hemoglobin 32.3 PG (26-34); Mean Corpuscular Volume 93.7 fL (80-100); Platelet Count 204 X10^3/uL (150-400)
[2025-02-16 17:44] LABS: Alanine Aminotransferase 19 IU/L (<35); Albumin 4.2 g/dL (3.5-5.0); Albumin Globulin Ratio 1.4 (1.0-2.8); Alkaline Phosphatase 49 U/L (38-126); Blood Urea Nitrogen 19 mg/dL (7-17); Calcium 9.0 mg/dL (8.4-10.2); Carbon Dioxide 26 mmol/L (22-32); Chloride 102 mmol/L (98-107); Cholesterol 168 mg/dL (140-199); Estimated Glomerular Filt Rate > 60 mL/min (>60); Globulin 2.9 g/dL (1.7-4.1); Glucose 86 mg/dL (70-99); HDL Cholesterol 59 mg/dL (40-60); HEMOLYSIS < 15 (0-50); Potassium 3.8 mmol/L (3.4-5.1); Sodium 137 mmol/L (137-145); Total Protein 7.1 g/dL (6.3-8.2); Triglycerides 92 mg/dL (35-150)
[2025-02-16 18:17] LABS: Estradiol, Total 107.6 pg/mL
[2025-02-16 18:19] LABS: Ferritin 31 ng/mL (11-264)
[2025-02-16 18:32] LABS: Vitamin B12 955 pg/mL (239-931)
== END ==
PROVIDERS: PCP Family Medicine; Referring Provider Family Medicine; Visit Provider Family Medicine
DX: E03.9 Hypothyroidism, unspecified (principal); Z00.00 Encounter for general adult medical examination without abnormal findings; G25.81 Restless legs syndrome; Z79.890 Hormone replacement therapy; R53.82 Chronic fatigue, unspecified
CPT/HCPCS: 36415; 80053; 80061; 82607; 82670; 82728; 84439; 84443; 84481; 85027